=== PATIENT | male | born 1940 | race African-American/Black ===

== ENCOUNTER 2017-07-24 11:27 | Observation (INO) | payer MEDICARE ==
[2017-07-24 12:39] LABS: Troponin I Less than 0.010 ng/mL (< 0.028)
[2017-07-24 13:01] VITALS: BMI 31.2
[2017-07-24] MEDS ORDERED: Acetaminophen 325 MG TAB PO PRN ×2 (13:17→14:03)
[2017-07-24] MEDS ORDERED: Ondansetron ODT 4 MG TAB SL PRN (13:17)
[2017-07-24] MEDS ORDERED: Aspirin 325 mg Enteric Coated Tablet PO SCH (13:30)
[2017-07-24] MEDS ORDERED: Dextrose 5% in Water 1,000 ML IV PRN (14:03)
[2017-07-24] MEDS ORDERED: Dextrose 50% Abboject 50 ML SYRINGE SLOW IVP PRN (14:03)
[2017-07-24] MEDS ORDERED: Zolpidem Tartrate 5 MG TAB PO PRN (14:03)
[2017-07-24] MEDS ORDERED: HumaLOG 300 UNITS/3 ML VIAL SC PRN (14:03)
[2017-07-24] MEDS ORDERED: Ondansetron HCl/PF 4 MG/2 ML Vial IVP PRN (14:03)
--- NOTE | 2017-07-24 14:26 | HP ---
PRIMARY CARE PROVIDER: Tank Rutledge M.D. Referred to the [facility] by [facility] after transferred from [place]. HISTORY OF PRESENT ILLNESS: Patient woke up this morning developed spinning sensation. No nausea. He gotten better, then he had some vague dizziness lying backwards. No dizziness arising. All of his symptoms are gone now. He had no syncope. He has had no fever, chills, chest pain. PAST MEDICAL HISTORY: Diabetes mellitus type 2, hypertension. ALLERGIES: None. PAST SURGICAL HISTORY: Both shoulders. FAMILY HISTORY: Mother of bladder CA. Two brothers of [place] toxicity. SOCIAL HISTORY: . No tobacco, no alcohol. CODE STATUS: FULL CODE status. Daughter Sayda Santana is next of kin for decision making. REVIEW OF SYSTEMS: GENERAL: No lightheadedness. No fever, chills or fainting. EYES: Decreased vision secondary to diabetes. No double vision, flashing lights. EAR, NOSE, AND THROAT: No ear pain or drainage. No nasal bleeding. No trouble swallowing. CARDIAC: No chest pain, orthopnea or paroxysmal nocturnal dyspnea. RESPIRATORY: No cough, wheezing or asthma. GASTROINTESTINAL: No nausea, vomiting, diarrhea or constipation. GENITOURINARY : No hematuria, dysuria, nocturia. MUSCULOSKELETAL: Occasional swelling in his legs. NEUROLOGIC: No strokes, seizures or focal weakness. PSYCHIATRIC: No anxiety, depression. SKIN: He had shingles 3 months ago on his left leg. HEME/LYMPH: No tender or swollen lymph nodes in axilla, inguinal or cervical area. PHYSICAL EXAMINATION: GENERAL: He is an alert, oriented, cooperative gentleman. VITAL SIGNS: Blood pressure 147/81, pulse 62, respirations 12, temperature 97.9 , O2 sat 96% on room air. HEENT: Examination of his head, eyes, ears, nose, and throat reveal pupils are equal, round, and reactive to light. Extraocular movements are intact. Sclerae are white. Tympanic membranes clear. Nose is clear. Throat is clear. NECK: Supple, without jugular venous distention, adenopathy or thyromegaly. CHEST: Clear to percussion. Clear to auscultation. No focal findings. HEART: Regular rate and rhythm. First and second heart sounds are clear. there is a soft 2/6 systolic murmur along LSB. ABDOMEN: Soft, bowel sounds are normal. There is no hepatosplenomegaly, no mass, no rebound, no bruits. EXTREMITIES: Reveal no cyanosis, clubbing or edema. PULSES: Carotid, radial, femoral, and dorsalis pedis pulses intact, symmetric. SKIN: Warm and dry. LYMPHATIC: Lymphatic survey is negative for nodes in axilla, inguinal or cervical area. NEUROLOGICAL: Cranial nerves II-XII are intact. Deep tendon reflexes diminished. Sensations intact. Moves all extremities. IMAGING DATA AND LABORATORY DATA: EKG; regular sinus rhythm with nonspecific ST abnormality, reviewed by me. The only laboratory available is troponin of 0.01. He was apparently seen in an outside hospital. His sodium at the [facility] was 140, potassium 3.6, BUN 8, creatinine 1.13. CBC: Hemoglobin 12.6, white count 6.4, platelet count 239,000. INR 1.0, troponin was normal. ADMITTING DIAGNOSES: 1. Dizziness, resolved. 2. Borderline sinus bradycardia. 3. Hypertension. 4. Diabetes mellitus type 2. 5. Dyslipidemia. PLAN: 1. Monitored bed. 2. Aspirin. 3. Serial enzymes, troponins. 4. Cardiology consult. 5. Reevaluate if dizziness recurs. MTDD
[2017-07-24 15:06] LABS: #Eosinphils 0.1 thou/uL (0.0-0.7); #Monocytes 0.5 thou/uL (0.11-0.59); #Neutrophils 4.1 thou/uL (1.40-6.50); %Basophils 0.7 % (0.0-1.0); %Monocytes 6.8 % (0.0-10.0); %Neutrophils 60.6 % (42.0-75.0); Hemoglobin 12.4 g/dL (14.0-18.0); Mean Corpuscular HGB CONC 32.1 g/dL (32.0-36.0); Mean Corpuscular Hemoglobin 31.6 pg (27.0-31.0); Mean Corpuscular Volume 98.3 fl (80.0-94.0); Mean Platelet Volume 6.8 fL (7.4-10.4); Platelet Count 232 thou/uL (130-400); RBC Distribution Width 12.2 % (11.5-14.5); Red Blood Cell (RBC) Count 3.92 mill/uL (4.70-6.10); White Blood Cell (WBC) Count 6.7 thou/uL (4.8-10.8)
[2017-07-24 15:30] LABS: ALT (SGPT) 10 U/L (8-55); AST (SGOT) 11 U/L (5-34); Albumin 3.9 g/dL (3.4-4.8); Alkaline Phosphatase 55 U/L (40-150); Anion Gap 11 mmol/L (10-20); BUN (Urea Nitrogen) 7 mg/dL (8.4-25.7); Bilirubin, Total 0.4 mg/dL (0.2-1.2); Calc. Creatinine Clearance 77 mL/min (70-130); Calcium 9.4 mg/dL (7.8-10.44); Carbon Dioxide 25 mmol/L (23-31); Chloride 106 mmol/L (98-107); Estimated GFR-MDRD 78; Glucose 204 mg/dL (83-110); Protein, Total 6.9 g/dL (5.8-8.1); Sodium 138 mmol/L (136-145)
[2017-07-24 15:34] LABS: Troponin I Less than 0.010 ng/mL (< 0.028)
--- NOTE | 2017-07-24 16:30 | CON ---
DATE OF CONSULTATION: 07/24/2017 CARDIOLOGY CONSULTATION REASON FOR CONSULTATION: Dizziness. HISTORY OF PRESENT ILLNESS: Mr. Del Rosario is a pleasant 77-year-old -[place] gentleman who come s to the hospital for dizziness. He was at home, he leaned down to grab his shoes and he felt a ap le lightheaded, so he decided to go to bed. He sat down on his bed and leaned back and when he leane d back he just felt suddenly the whole room started spinning, really bad to the point where he had to stand up immediately. When he stood up, the symptoms got better and because this was very prominent , he decided to come into the hospital for evaluation. PAST MEDICAL HISTORY: 1. Type 2 diabetes. 2. Hypertension. OUTPATIENT MEDICATIONS: 1. Lipitor 10 mg a day. 2. Metformin 1000 mg p.o. b.i.d. 3. Lisinopril 10 mg a day. 4. Aspirin 81 a day. 5. Ranitidine 300 mg b.i.d. 6. Januvia. 7. Glipizide. ALLERGIES: No known drug allergies. SOCIAL HISTORY: No alcohol, tobacco or drugs. He has a very remote history of tobacco and drug use in his teens. FAMILY HISTORY: Mother of bladder cancer. No early coronary artery disease. PAST SURGICAL HISTORY: Shoulder surgery bilaterally. REVIEW OF SYSTEMS: A 12 point review of systems was done and it is all negative unless stated in the history of present illness. PHYSICAL EXAMINATION: VITAL SIGNS: Temperature 97.3, pulse 63, respiratory rate 18, satting 96% on room air, blood pressur e 160/75. GENERAL: Awake, alert, oriented x3, in no distress. HEENT: Normocephalic, atraumatic. NECK: Supple. LUNGS: Clear. CARDIOVASCULAR: S1 and S2, no S3, S4, no murmurs or rubs. Grade 2/6 systolic murmur in the right up per sternal border. ABDOMEN: Soft, positive bowel sounds. EXTREMITIES: No edema. SKIN: Warm and dry. LABORATORY DATA AND IMAGING DATA: Laboratory work was reviewed. CBC with white count of 6.7, hemogl obin 12.4, hematocrit of 38, and platelet count of 232. Chemistry was unremarkable. Troponin is neg ative x2. EKG was reviewed. Sinus bradycardia with mild 58 beats per minute with nonspecific ST estela nges. ASSESSMENT AND PLAN: Dizziness: It sounds more like peripheral vertigo. Given his position change, it is what made him get dizzy and the dizziness is more of the room spinning. We will make sure sejal t his heart is not an issue. We will get an echocardiogram and if this is normal from the cardiac pe rspective, he should be able to be discharged home with follow up with us in 1 month. Otherwise, fur ther recommendation with results of echocardiogram.
[2017-07-24] MEDS ORDERED: Meclizine HCl 25 MG TAB PO SCH (18:00)
[2017-07-24] MEDS ORDERED: Meclizine HCl 25 MG TAB PO PRN (18:31)
[2017-07-24] MEDS ORDERED: Atorvastatin Calcium 10 MG TAB PO SCH (21:00)
[2017-07-25 05:00] LABS: #Eosinphils 0.3 thou/uL (0.0-0.7); #Lymphocytes 2.4 thou/uL (1.20-3.40); #Monocytes 0.6 thou/uL (0.11-0.59); #Neutrophils 2.6 thou/uL (1.40-6.50); %Basophils 0.7 % (0.0-1.0); %Eosinophils 5.3 % (0.0-10.0); %Lymphocytes 40.2 % (21.0-51.0); %Monocytes 10.6 % (0.0-10.0); %Neutrophils 43.1 % (42.0-75.0); Hemoglobin 11.9 g/dL (14.0-18.0); Mean Corpuscular HGB CONC 32.2 g/dL (32.0-36.0); Mean Corpuscular Hemoglobin 31.5 pg (27.0-31.0); Mean Corpuscular Volume 97.9 fl (80.0-94.0); Platelet Count 236 thou/uL (130-400); RBC Distribution Width 12.1 % (11.5-14.5); Red Blood Cell (RBC) Count 3.76 mill/uL (4.70-6.10)
[2017-07-25 05:11] LABS: Anion Gap 6 mmol/L (10-20); BUN (Urea Nitrogen) 9 mg/dL (8.4-25.7); Calc. Creatinine Clearance 75 mL/min (70-130); Calcium 9.2 mg/dL (7.8-10.44); Carbon Dioxide 30 mmol/L (23-31); Chloride 107 mmol/L (98-107); Estimated GFR-MDRD 76; Glucose 162 mg/dL (83-110); Potassium 4.3 mmol/L (3.5-5.1); Sodium 139 mmol/L (136-145)
[2017-07-25 07:46] VITALS: BP 127/61; TEMP 97.9
[2017-07-25] MEDS ORDERED: Lisinopril 10 MG TAB PO SCH (09:00)
[2017-07-25] MEDS ORDERED: Aspirin 81 mg Enteric Coated Tablet PO SCH (09:00)
[2017-07-25] MEDS ORDERED: Famotidine 20 MG TAB PO SCH (09:00)
--- NOTE | 2017-07-25 10:33 | PDOC.EVN ---
Event Note - Event Note Event Note: DC SUMMARY DICTATED #[id number]
--- NOTE | 2017-07-25 10:56 | DIS ---
DATE OF ADMISSION: 07/24/2017 DATE OF DISCHARGE: 07/25/2017 ADMITTING DIAGNOSES: Dizziness and near syncope, diabetes mellitus type 2, hypertension. DISCHARGE DIAGNOSES: Dizziness; near syncope secondary to benign positional vertigo; diabetes mellit us type 2, stable; hypertension, stable. HOSPITAL COURSE: This is a 77-year-old male who was admitted to the Internal Medicine team and also seen by Cardiology on the telemetry floor observation status due to spinning sensations that got wors e upon movement and position of his head. The patient apparently had nonspecific ST abnormalities on EKG and given his history of hypertension and type 2 diabetes mellitus, he was admitted to the telem etry floor to rule out any cardiac events that may be causing his symptoms. The patient had an echoc ardiogram performed, which showed a well-functioning cardiac function, ejection fraction 55%-60% with mildly dilated left atrium, mild annular calcifications, mild mitral regurg, and mild aortic and tri cuspid regurgitation. The patient was deemed stable from a cardiac perspective as well as a medicine perspective prior to discharge and was to follow up with PCP and Cardiology in 2-3 weeks. DISPOSITION: Home. FOLLOWUP: Follow up with PCP in 2 weeks, Cardiology in 3 weeks. MEDICATIONS: See MAR. The patient was given a prescription for meclizine 12.5 mg p.o. p.r.n. daily for vertigo, 20 tablets dispensed, no refills. DIET: Low fat, low calorie, high fiber. ACTIVITY: As tolerated. CONDITION: Stable. PROGNOSIS: Good. Case and plan discussed with the patient at length. He understands and agrees wit h this plan.
== END 2017-07-25 11:08 | disposition home or self-care (01) ==
LOC: ERS 11:27 → EDBD 11:27 → 2SW 11:57
PROVIDERS: ADMIT Internal Medicine; ATTEND Internal Medicine
DX: H81.10 Benign paroxysmal vertigo, unspecified ear (principal); E11.9 Type 2 diabetes mellitus without complications; I11.9 Hypertensive heart disease without heart failure; E78.5 Hyperlipidemia, unspecified; Z79.899 Other long term (current) drug therapy; Z79.82 Long term (current) use of aspirin; Z79.84 Long term (current) use of oral hypoglycemic drugs
CPT/HCPCS: 80048; 80053; 82962 ×2; 84443; 84484 ×2; 85025 ×2; 93005; 93306; 99285; G0378; 36415; 36416